=== PATIENT | female | born 1985 | race Caucasian/White ===

== ENCOUNTER 2016-08-07 08:44 | Emergency (ER) | payer OTHER ==
--- NOTE | 2016-08-07 09:30 | PD ---
HPI Chief Complaint Complaints possibly leaking fluid Date Seen: Aug 07, 2016 Travel History International Travel<30 Days: No Contact w/Intl Traveler<30Days: No History of Present Illness HPI This patient is a 30-year-old white female at 36 weeks of [address] by Dr. Urbano for OB presents complaining of possibly leaking amniotic fluid today. Patient denies bleeding or contractions. Baby is active heart rate tracing is reactive and she is having occasional contraction Para: 0 : 1 History Past Medical History Medical History: Denies Significant Hx Review of Systems General / Constitutional: No: Fever, Weight Gain, Chills, Other Eyes: No: Diploplia, Blurred Vision, Visual changes, Pain, Photophobia HENT: No: Headaches, Vertigo, Lightheadedness Cardiovascular: No: Irregular Rhythm, Chest Pain or Discomfort, Palpitations, Tachycardia, Syncope, Varicosities, Edema, Cyanosis Respiratory: No: Cough, Short of Breath, Other Gastrointestinal: No: Nausea, Vomiting, Diarrhea Genitourinary: No: Decreased Urinary Output, Oliguria Musculoskeletal: No: Limited ROM, Weakness, Cramping, Edema, Pain Skin: No Rash, No Itching, No Dryness, No Lumps, No Change in Pigmentation, No Change in Nails, No Alopecia, No Lesions Neurologic: No: Weakness, Dizziness, Syncope, Focal Abnormalities, Coordination Problem, Headache, Slurred Speech, Seizures Psychiatric: No: Depression, Suicidal Ideations, Homicidal Ideation Endocrine: No: Heat Intolerance, Cold Intolerance, Polydipsia, Polyuria, Other Physical Exam Narrative GENERAL: Well-nourished, well-developed patient. SKIN: Warm and dry. HEAD: Normocephalic and atraumatic. EYES: No scleral icterus. No injection or drainage. ENT: No nasal drainage noted. Mucous membranes pink. Airway patent. NECK: Supple, trachea midline. No JVD. CARDIOVASCULAR: Regular rate and rhythm without murmurs, gallops, or rubs. RESPIRATORY: Breath sounds equal bilaterally. No accessory muscle use. BREASTS: Bilateral exam showed no masses , no retractions, no nipple discharge. ABDOMEN/GI: Abdomen soft, non-tender, bowel sounds present, no rebound, no guarding Gravid to [-36] weeks size Fundal Height: [-35 cm ] GENITOURINARY: External Genitalia: intact and normal in appearance BUS glands: [-] Cervix: [-] Dilatation: [-1] Effacement: [-thick] Station: [-3] Presentation: [vtx-] Membranes: [intact ] negative amnio sure Uterine Contractions: [occasional-] FHT's: Category: [1-] Baseline: [144-] Reactive: [yes-] Variability: [mod-] Decels: [-none] EXTREMITIES: No cyanosis or edema. BACK: Nontender without obvious deformity. No CVA tenderness. NEUROLOGICAL: Awake and alert. Motor and sensory grossly within normal limits. Five out of 5 muscle strength in all muscle groups. Normal speech. Data Data Labs Negative amnio sure MDM Interpretation(s) This patient is at 36 weeks who thought she might have leaked amniotic fluid. She's had no further leakage after significant drainage earlier this morning. I amnisure is negative today. The fetus has a reactive heart rate tracing and is irregular contractions noted cervix was checked and is 1 cm /thick & high. Plan Plan to discharge home and have follow-up with her OB provider as scheduled Diagnosis Diagnosis: Primary Impression: No leakage of amniotic fluid into vagina Disposition: DISCHARGE HOME Condition: Stable Gurinder Lucero II, MD Aug 07, 2016 09:30
== END 2016-08-07 09:40 | disposition home or self-care (01) ==
LOC: HOBED 08:44
DX: O26.893 Other specified pregnancy related conditions, third trimester (principal); Z3A.36 36 weeks gestation of pregnancy
CPT/HCPCS: 59025; 84112

== ENCOUNTER 2016-08-13 16:54 | Inpatient (IN) | payer OTHER ==
[2016-08-13] MEDS ORDERED: LACTATED RINGER'S 1000 ML INJ 1,000 ML IV ONE (17:10)
[2016-08-13 17:15] VITALS: BP 128/75; PULSE 62
[2016-08-13 17:39] LABS: AUTOMATED NEUTROPHIL # 7.7 TH/MM3 (1.8-7.7); BASOPHIL % 0.2 % (0.0-2.0); EOSINOPHIL % 0.2 % (0.0-4.0); HEMATOCRIT 38.5 % (35.0-46.0); HEMO FLAGS DIFF FINAL; LYMPH % 25.3 % (9.0-44.0); LYMPHOCYTE # 2.8 TH/MM3 (1.0-4.8); MEAN CELL VOLUME 89.4 FL (80.0-100.0); MEAN CORPUSCULAR HGB CONC 34.6 % (32.0-36.0); MONO % 5.3 % (0.0-8.0); PLATELET COUNT 200 TH/MM3 (150-450); RED CELL DISTRIBUTION WIDTH 12.4 % (11.6-17.2); WHITE BLOOD COUNT 11.2 TH/MM3 (4.0-11.0)
[2016-08-13] MEDS: LACTATED RINGER'S 1000 ML INJ 1,000 ML IV SCH (17:42)
--- NOTE | 2016-08-13 18:01 | HHI.HP ---
HPI Chief Complaint bradycardia Date Seen: Aug 13, 2016 Travel History International Travel<30 Days: No Contact w/Intl Traveler<30Days: No Known Affected Area: No History of Present Illness HPI PT is a 30 yo at 37w2d who presented to [facility] visit and was noted to have bradycardia 70-80's on doppler, confirmed by u/s. Fetus shifted and hr returned to 140's. Pt has been having good fm. Has felt possible contractions , getting stronger last few days. no lof or vb. Para: 0 History Past Medical History Medical History: Denies Significant Hx Obstetric History Obstetric History g1 Past Surgical History Narrative Surgical Breast augmentation, ACLS Family History Family History: Negative Social History Alcohol Use: No Tobacco Use: No Substance Abuse: No Allergies-Medications (Allergen,Severity, Reaction): Coded Allergies: Penicillin (Verified Allergy, Unknown, 08/13/16) Review of Systems General / Constitutional: No: Fever, Weight Gain, Chills, Other Eyes: No: Diploplia, Blurred Vision, Visual changes, Pain, Photophobia HENT: No: Headaches, Vertigo, Lightheadedness Cardiovascular: No: Irregular Rhythm, Chest Pain or Discomfort, Palpitations, Tachycardia, Syncope, Varicosities, Edema, Cyanosis Respiratory: No: Cough, Short of Breath, Other Gastrointestinal: No: Nausea, Vomiting, Diarrhea Genitourinary: No: Decreased Urinary Output, Oliguria Musculoskeletal: No: Limited ROM, Weakness, Cramping, Edema, Pain Skin: No Rash, No Itching, No Dryness, No Lumps, No Change in Pigmentation, No Change in Nails, No Alopecia, No Lesions Neurologic: No: Weakness, Dizziness, Syncope, Focal Abnormalities, Coordination Problem, Headache, Slurred Speech, Seizures Psychiatric: No: Depression, Suicidal Ideations, Homicidal Ideation Endocrine: No: Heat Intolerance, Cold Intolerance, Polydipsia, Polyuria, Other Physical Exam Narrative GENERAL: Well-nourished, well-developed patient. SKIN: Warm and dry. HEAD: Normocephalic and atraumatic. EYES: No scleral icterus. No injection or drainage. ENT: No nasal drainage noted. Mucous membranes pink. Airway patent. NECK: Supple, trachea midline. No JVD. CARDIOVASCULAR: Regular rate and rhythm without murmurs, gallops, or rubs. RESPIRATORY: Breath sounds equal bilaterally. No accessory muscle use. ABDOMEN/GI: Abdomen soft, non-tender, bowel sounds present, no rebound, no guarding Gravid to 37weeks size GENITOURINARY: External Genitalia: intact and normal in appearance BUS glands: [-] Cervix: 1//-3 Presentation: c Membranes: [intact Uterine Contractions: 2-5 min FHT's: Category: I Baseline: 140 Reactive: [-] Variability: mod Decels: [-] EXTREMITIES: No cyanosis or edema. BACK: Nontender without obvious deformity. No CVA tenderness. NEUROLOGICAL: Awake and alert. Motor and sensory grossly within normal limits. Five out of 5 muscle strength in all muscle groups. Normal speech. Data Data Vital Signs Reviewed: Yes Orders Admit To Inpatient (08/13/16 ) Vital Signs (Adult) .ON ADMISSION (08/13/16 17:10) Activity Oob Ad Hortencia (08/13/16 17:10) ^ Heart (08/13/16 17:10) Urinary Catheter Management [facility].Q8H (08/13/16 17:10) ^ Preps (08/13/16 17:10) Scd / Jairo / Foot Pump [facility].QSHIFT (08/13/16 17:10) ^ Ultrasound For Locatio (08/13/16 17:10) Diet Npo (08/13/16 Dinner) Lactated Ringer's 1000 Ml Inj (Lr 1000 M (08/13/16 17:10) Lactated Ringer's 1000 Ml Inj (Lr 1000 M (08/13/16 17:40) Cefazolin 2 Gm Premix (Ancef 2 Gm Premix (08/13/16 18:15) Citric Acid-Sodium Citrate Liq (Bicitra (08/13/16 18:45) Type And Screen (08/13/16 17:10) Complete Blood Count With Diff (08/13/16 17:10) Urinalysis - C+S If Indicated (08/13/16 17:10) Inpatient Certification (08/13/16 ) Specimen To Be Collected PRN (08/13/16 17:10) Labs Laboratory Tests Test 08/13/16 17:00 White Blood Count 11.2 Red Blood Count 4.30 Hemoglobin 13.3 Hematocrit 38.5 Mean Corpuscular Volume 89.4 Mean Corpuscular Hemoglobin 31.0 Mean Corpuscular Hemoglobin 34.6 Concent Red Cell Distribution Width 12.4 Platelet Count 200 Mean Platelet Volume 10.4 Neutrophils (%) (Auto) 69.0 Lymphocytes (%) (Auto) 25.3 Monocytes (%) (Auto) 5.3 Eosinophils (%) (Auto) 0.2 Basophils (%) (Auto) 0.2 Neutrophils # (Auto) 7.7 Lymphocytes # (Auto) 2.8 Monocytes # (Auto) 0.6 Eosinophils # (Auto) 0.0 Basophils # (Auto) 0.0 CBC Comment DIFF FINAL Differential Comment Assessment/Plan Problem List: (1) bradycardia before the onset of labor (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 monitoring reassuring and family interested in induction. discussed possible distress with induction and need for emergency CD. Family desires iol, discussed starting pitocin or FB. Interested in FB placement. Will place now. 1) IOL - will watch closely, low threshold for cd 2) GBS uria 3) Fetus ceph, approx 6 lb Deena Urbano MD Aug 13, 2016 18:01
[2016-08-13] MEDS ORDERED: ceFAZolin 2 GM PREMIX 50 ML IV SCH (18:15)
[2016-08-13] MEDS ORDERED: OXYTOCIN 30 UNITS-500ML PREMIX 500 ML IV SCH (18:30)
[2016-08-13] MEDS ORDERED: CITRIC ACID-SODIUM CITRATE LIQ 30 ML UDC PO SCH (18:45)
[2016-08-13 18:46] VITALS: BP 100/61; PULSE 68
[2016-08-13 19:00] VITALS: RESP 18; TEMP 97.9
[2016-08-13 23:51] VITALS: BP 110/68; PULSE 55
[2016-08-14] VITALS (52 sets, daily range): BP systolic 99–143; BP diastolic 51–87; PULSE 47–229; RESP 18; TEMP 97.8–100.9
[2016-08-14] MEDS: LACTATED RINGER'S 1000 ML INJ 1,000 ML IV SCH ×3 (05:33→13:40)
--- NOTE | 2016-08-14 08:02 | PD.LABORPN ---
Subjective Subjective quiet night with some UCs. 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 category one at this time GBS + marginal warren score but now arom Clindamycin for GBS pitocin epidural prn birthing ball--with no heartrate misbehavior anticipate Cele Gaston MD Aug 14, 2016 08:02
[2016-08-14] MEDS ORDERED: OXYTOCIN 30 UNITS-500ML PREMIX 500 ML IV SCH ×2 (08:15→13:15)
[2016-08-14] MEDS: CLINDAMYCIN INJ 900 MG in SODIUM CHLORIDE 0.9% INJ 100 ML IV SCH ×2 (08:46→16:25)
--- NOTE | 2016-08-14 12:58 | PD.LABORPN ---
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
[2016-08-14] MEDS ORDERED: fentaNYL 2MCG-BUPIV 0.125% INJ 100 ML ONE (13:51)
[2016-08-14] MEDS ORDERED: ePHEDrine/NS 25 MG/5 ML SYR ONE (14:08)
--- NOTE | 2016-08-14 15:43 | PD.LABORPN ---
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
[2016-08-14] MEDS ORDERED: MEASLES, MUMPS, RUBELLA VACCINE 0.5 ML VIAL SQ ONE (16:00)
[2016-08-14] MEDS ORDERED: DIPHTH/TETANUS/ACEL PERTUSSIS (BOOSTER) 0.5 ML VIAL/PFS IM ONE (16:00)
[2016-08-14] MEDS ORDERED: DO NOT ADMINISTER ANTICOAGULANTS XX PRN (16:15)
[2016-08-14] MEDS ORDERED: fentaNYL 2MCG-BUPIV 0.125% INJ 100 ML EPIDURAL SCH (16:15)
[2016-08-14] MEDS ORDERED: NO SYSTEM NARCOTICS XX PRN (16:15)
[2016-08-14] MEDS ORDERED: ePHEDrine/NS 50 MG/5 ML SYR IV PRN (16:15)
[2016-08-14 19:26] LABS: BLOOD GAS BASE EXCESS -7.3 mmol/L (-2-2); BLOOD GAS O2 HGB SATURATION 32 % (90-100); CORD BLOOD GAS HCO3 20 mmol/L (21-29); CORD BLOOD GAS PCO2 56 mmHG (34-78); CORD BLOOD GAS PH 7.18 (7.14-7.42); CORD BLOOD GAS PO2 21 mmHG (3.0-40.0); DRAW SITE CORD BLOOD; STAT NO
--- NOTE | 2016-08-14 19:37 | PD.OB.DELI ---
Anesthesia: Epidural Episiotomy: Right mediolateral Vaginal Delivery: Forceps, Vacuum Presentation: Occiput anterior Nuchal Cord: x1 Infant: Male One Minute : 4 Five Minute : 8 Ten Minute : 8 Weight: 5 10 Care: Suctioned, Responded to stimulation, Blow-by O2 delivered Placenta: Spontaneous delivery Laceration: Episiotomy, 2 deg Repair: Chromic interrupted (EBL usual posterior asynclitism prevented Kiwi delivery. Tuckers used over one contraction from +3. Partial tear in sphincter capsule. Rectal exam reassuring. Cord blood gases obtained and delayed cord clamping employed.), Vicryl interrupted Cele Chan MD Aug 14, 2016 19:36
[2016-08-14] MEDS ORDERED: BENZOCAINE 20% TOPICAL SPRAY 60 ML CAN TOPICAL PRN (19:45)
[2016-08-14] MEDS ORDERED: ACETAMINOPHEN 325 MG TAB PO PRN (19:45)
[2016-08-14] MEDS ORDERED: DOCUSATE SODIUM 50 MG/SENNA 8.6 MG TAB PO PRN (19:45)
[2016-08-14] MEDS ORDERED: SODIUM CHLORIDE 0.9% FLUSH 5 ML FLUSH IV PRN (19:45)
[2016-08-14] MEDS ORDERED: WITCH HAZEL 50%/GLYCERIN 12.5% 40 PAD JAR TOPICAL PRN (19:45)
[2016-08-14] MEDS ORDERED: ZOLPIDEM TARTRATE 5 MG TAB PO PRN (19:45)
[2016-08-14] MEDS ORDERED: ALUMINUM/MAGNESIUM/SIMETH 30 ML CUP PO PRN (19:45)
[2016-08-14] MEDS ORDERED: ONDANSETRON ODT 4 MG TAB PO PRN (19:45)
[2016-08-14] MEDS ORDERED: SODIUM CHLORIDE 0.9% FLUSH 5 ML FLUSH IV SCH (21:00)
[2016-08-14] MEDS: WITCH HAZEL 50%/GLYCERIN 12.5% 40 PAD JAR TOPICAL PRN (23:39)
[2016-08-14] MEDS: HYDROCORTISONE ACETATE 25 MG SUPP RECTAL SCH (23:39)
[2016-08-15] MEDS: IBUPROFEN 600 MG TAB PO PRN ×4 (03:40→21:16)
--- NOTE | 2016-08-15 08:11 | HHI.OB ---
Subjective Post Day: 1 Remarks no complaints, Objective Vitals/I&O Vital Signs Date Time Temp Pulse Resp B/P Pulse Ox O2 Delivery O2 Flow Rate FiO2 08/14/16 23:00 118/65 08/14/16 23:00 98.8 76 18 08/14/16 22:15 82 105/58 08/14/16 22:00 79 118/64 08/14/16 21:45 73 111/65 08/14/16 21:30 100 115/65 08/14/16 21:15 98.7 99 109/60 08/14/16 21:01 91 137/72 08/14/16 20:45 78 118/65 08/14/16 20:31 99 120/64 08/14/16 20:30 18 08/14/16 20:15 18 08/14/16 20:15 84 115/63 08/14/16 20:00 69 127/66 08/14/16 20:00 100.9 18 08/14/16 19:46 78 138/73 08/14/16 15:55 75 115/63 08/14/16 15:50 82 106/53 08/14/16 15:45 73 99/59 08/14/16 15:40 72 99/64 08/14/16 15:36 74 123/57 08/14/16 15:35 69 08/14/16 15:30 66 114/68 08/14/16 15:25 69 115/68 08/14/16 15:20 72 108/67 08/14/16 15:15 70 126/75 08/14/16 15:11 229 121/72 08/14/16 15:10 76 08/14/16 15:05 78 137/87 08/14/16 15:00 76 126/85 08/14/16 14:55 143/82 08/14/16 14:55 74 08/14/16 14:50 131/77 08/14/16 14:50 75 08/14/16 14:46 101 08/14/16 14:46 103/51 08/14/16 14:45 65 08/14/16 14:41 89 137/68 08/14/16 14:40 65 08/14/16 14:36 71 134/70 08/14/16 14:35 67 08/14/16 14:33 73 135/79 08/14/16 13:45 97.8 08/14/16 13:30 63 130/68 08/14/16 13:00 62 130/73 08/14/16 12:30 58 114/66 08/14/16 11:30 55 112/76 08/14/16 11:13 98.7 08/14/16 11:00 55 105/64 08/14/16 10:30 65 103/60 08/14/16 09:41 18 08/14/16 09:38 59 103/53 08/14/16 08:45 98.1 Objective Remarks GENERAL: Well-nourished, well-developed patient. CARDIOVASCULAR: Regular rate and rhythm without murmurs, gallops, or rubs. RESPIRATORY: Breath sounds equal bilaterally. No accessory muscle use. ABDOMEN/GI: Abdomen soft, non-tender. Fundus: Firm, non-tender at umbilicus. GENITOURINARY: Light to moderate bleeding. EXTREMITIES: No cyanosis or edema, non-tender, without signs of DVT. Medications and IVs Current Medications Medications (Trade) Dose Ordered Sig/Rodolfo Route Start Time Stop Time Status Last Admin Lactated Ringer's 1,000 ml @ 150 mls/hr Q6H40M IV 08/13/16 17:40 08/14/16 13:40 (Cleocin Inj/NS Inj) 106 ml @ 200 mls/hr Q8H IV 08/14/16 10:00 08/14/16 16:25 (fentaNYL INJ) 50 mcg Q1H PRN IV PUSH 08/14/16 13:15 Fentanyl Citrate 100 mcg 100 mcg Q1H PRN IV PUSH 08/14/16 13:15 08/14/16 13:13 (Pitocin 30 Units-NS 500 ml Premix) 500 ml @ 0 mls/hr TITRATE IV 08/14/16 13:15 Miscellaneous Information No systemic narcotics to be given except... UNSCH PRN XX 08/14/16 16:15 08/15/16 16:14 Miscellaneous Information DO NOT ADMINISTER ANY ANTICOAGUL... UNSCH PRN XX 08/14/16 16:15 08/15/16 16:14 (fentaNYL 2MCG-BUPIV 0.125% INJ) 100 ml @ 0 mls/hr TITRATE EPIDURAL 08/14/16 16:15 (ePHEDrine/NS 50 MG/5 ML SYR) 10 mg UNSCH PRN IV 08/14/16 16:15 08/15/16 16:14 (NS Flush) 2 ml BID IV 08/14/16 21:00 (NS Flush) 2 ml UNSCH PRN IV 08/14/16 19:45 (Tylenol) 650 mg Q4H PRN PO 08/14/16 19:45 (Motrin) 600 mg Q6H PRN PO 08/14/16 19:45 08/15/16 03:40 (Americaine 20% Top Spr) 1 spray Q4H PRN TOPICAL 08/14/16 19:45 08/14/16 23:39 (Tucks Pads) 1 applic QID PRN TOPICAL 08/14/16 19:45 08/14/16 23:39 (Gianna-Colace) 2 tab Q12H PRN PO 08/14/16 19:45 (Ambien) 5 mg HS PRN PO 08/14/16 19:45 (Mag-Al Plus Susp Liq) 15 ml Q8H PRN PO 08/14/16 19:45 (Zofran Odt) 4 mg Q6H PRN PO 08/14/16 19:45 (Tucks Pads) 1 applic UNSCH PRN TOPICAL 08/14/16 19:45 (Hemorrhoidal Hc Supp) 25 mg BID RECTAL 08/14/16 21:00 08/14/16 23:39 Assessment/Plan Problem List: (1) bradycardia before the onset of labor (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
[2016-08-15] MEDS: HYDROCORTISONE ACETATE 25 MG SUPP RECTAL SCH ×2 (14:47→21:16)
[2016-08-15] MEDS: WITCH HAZEL 50%/GLYCERIN 12.5% 40 PAD JAR TOPICAL PRN (21:16)
[2016-08-16] MEDS: IBUPROFEN 600 MG TAB PO PRN ×2 (03:12→09:31)
[2016-08-16] MEDS ORDERED: SENN1TAB PO (07:57)
[2016-08-16] MEDS ORDERED: IBUP-232 PO (07:57)
--- NOTE | 2016-08-16 07:59 | HHI.DCPOC ---
Discharge Care Plan Diagnosis: (1) GBS carrier (2) Vaginal delivery (3) Born by forceps delivery Report Symptoms to Your Doctor -Temperate above 100.5 degrees -Redness, of incision or excessive or foul smelling drainage -Unusual pain or calf pain -Increased vaginal bleeding -Painful or difficulty urinating -Feelings of extreme sadness or anxiety after 2 weeks Goals to Promote Your Health * To prevent worsening of your condition and complications * To maintain your health at the optimal level Directions to Meet Your Goals Take your medications as prescribed Follow your dietary instruction Follow activity as directed Ensure plenty of rest for recovery Drink fluids for hydration Keep your appointments as scheduled Take your immunizations and boosters as scheduled If your symptoms worsen call your PCP, if no PCP go to Urgent Care Center or Emergency Room Smoking is Dangerous to Your Health. Avoid second hand smoke Call the 24-hour crisis hotline for domestic abuse at Martha Rodriguez MD Aug 16, 2016 07:58
[2016-08-16] MEDS: HYDROCORTISONE ACETATE 25 MG SUPP RECTAL SCH (09:31)
--- NOTE | 2016-08-16 11:31 | HHI.OB ---
Subjective Post Day: 2 Objective Objective Remarks GENERAL: Well-nourished, well-developed patient. CARDIOVASCULAR: Regular rate and rhythm without murmurs, gallops, or rubs. RESPIRATORY: Breath sounds equal bilaterally. No accessory muscle use. ABDOMEN/GI: Abdomen soft, non-tender. Fundus: Firm, non-tender at umbilicus. GENITOURINARY: Light to moderate bleeding. EXTREMITIES: No cyanosis or edema, non-tender, without signs of DVT. Medications and IVs Current Medications Medications (Trade) Dose Ordered Sig/Rodolfo Route Start Time Stop Time Status Last Admin Lactated Ringer's 1,000 ml @ 150 mls/hr Q6H40M IV 08/13/16 17:40 08/14/16 13:40 (Cleocin Inj/NS Inj) 106 ml @ 200 mls/hr Q8H IV 08/14/16 10:00 08/14/16 16:25 (fentaNYL INJ) 50 mcg Q1H PRN IV PUSH 08/14/16 13:15 Fentanyl Citrate 100 mcg 100 mcg Q1H PRN IV PUSH 08/14/16 13:15 08/14/16 13:13 Oxytocin 500 ml @ 0 mls/hr TITRATE IV 08/14/16 13:15 (fentaNYL 2MCG-BUPIV 0.125% INJ) 100 ml @ 0 mls/hr TITRATE EPIDURAL 08/14/16 16:15 (NS Flush) 2 ml BID IV 08/14/16 21:00 (NS Flush) 2 ml UNSCH PRN IV 08/14/16 19:45 (Tylenol) 650 mg Q4H PRN PO 08/14/16 19:45 (Motrin) 600 mg Q6H PRN PO 08/14/16 19:45 08/16/16 09:31 (Americaine 20% Top Spr) 1 spray Q4H PRN TOPICAL 08/14/16 19:45 08/14/16 23:39 (Tucks Pads) 1 applic QID PRN TOPICAL 08/14/16 19:45 08/15/16 21:16 (Gianna-Colace) 2 tab Q12H PRN PO 08/14/16 19:45 08/15/16 21:16 (Ambien) 5 mg HS PRN PO 08/14/16 19:45 (Mag-Al Plus Susp Liq) 15 ml Q8H PRN PO 08/14/16 19:45 (Zofran Odt) 4 mg Q6H PRN PO 08/14/16 19:45 (Tucks Pads) 1 applic UNSCH PRN TOPICAL 08/14/16 19:45 (Hemorrhoidal Hc Supp) 25 mg BID RECTAL 08/14/16 21:00 08/16/16 09:31 Assessment/Plan Problem List: (1) bradycardia before the onset of labor (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
== END 2016-08-16 15:42 | disposition home or self-care (01) | DRG 775 ==
LOC: H2EB 16:54 → H2EA 17:58 → H1EA 08-14 22:41
PROVIDERS: ADMIT Obstetrics & Gynecology; ATTEND Obstetrics & Gynecology
PROC: 0T9B70Z Drainage of Bladder with Drainage Device, Via Natural or Artificial Opening (ICD-10-PCS; 2016-08-13)
PROC: 10D07Z6 Extraction of Products of Conception, Vacuum, Via Natural or Artificial Opening (ICD-10-PCS; principal; 2016-08-14)
PROC: 0KQM0ZZ Repair Perineum Muscle, Open Approach (ICD-10-PCS; 2016-08-14)
PROC: 0W8NXZZ Division of Female Perineum, External Approach (ICD-10-PCS; 2016-08-14)
PROC: 00HU33Z Insertion of Infusion Device into Spinal Canal, Percutaneous Approach (ICD-10-PCS; 2016-08-14)
PROC: 3E0R3CZ (ICD-10-PCS; 2016-08-14)
PROC: 10907ZC Drainage of Amniotic Fluid, Therapeutic from Products of Conception, Via Natural or Artificial Opening (ICD-10-PCS; 2016-08-14)
DX: O76 Abnormality in fetal heart rate and rhythm complicating labor and delivery (principal); O99.824 Streptococcus B carrier state complicating childbirth; Z3A.37 37 weeks gestation of pregnancy; O69.81X0 Labor and delivery complicated by cord around neck, without compression, not applicable or unspecified; O70.1 Second degree perineal laceration during delivery; Z37.0 Single live birth
CPT/HCPCS: 82805; 85025; 86850; 86900; 86901; 88307; J2590; J3010; J7120